=== PATIENT | male | born 1970 | race American Indian/Alaskan Native ===

== ENCOUNTER 2019-04-17 16:06 | Emergency (ER) | payer MEDICAID ==
--- NOTE | 2019-04-17 16:12 | Event Note ---
ED Screening Note Date of service: 04/17/19 Time: 16:12 ED Screening Note: 49 y/o male comes in for abscess to the back of his head for 2 days. This initial assessment/diagnostic orders/clinical plan/treatment(s) is/are subject to change based on patients health status, clinical progression and re- assessment by fellow clinical providers in the ED. Further treatment and workup at subsequent clinical providers discretion. Patient/guardian urged not to elope from the ED as their condition may be serious if not clinically assessed and managed. Initial orders include:
--- NOTE | 2019-04-17 17:40 | Emergency Department Report ---
- General Chief complaint: Skin/Abscess/Foreign Body Stated complaint: BUMP ON HEAD/PAIN Time Seen by Provider: 04/17/19 17:10 Source: patient Mode of arrival: Ambulatory Limitations: No Limitations - History of Present Illness Initial comments: Patient is a 49-year-old male who presents the emergency room with complaints of an abscess to the posterior scalp that began a week ago. He states he has had pus drainage. Denies ever having before. He states last week he shaved his head with a razor and had an ingrown hair present and he pulled the hair. He denies any fever. He has a past medical history of diabetes and hypertension. Do not take his high blood pressure medication today - Related Data Previous Rx's Medication Instructions Recorded Last Taken Type Sulfamethoxazole/Trimethoprim 1 each PO BID 10 Days #20 tablet 04/17/19 Unknown Rx [Bactrim DS TAB] Allergies Allergy/AdvReac Type Severity Reaction Status Date / Time No Known Allergies Allergy Verified 04/17/19 16:11 Abscess Boil HPI - HPI Chief Complaint: Skin/Abscess/Foreign Body Stated Complaint: BUMP ON HEAD/PAIN Time Seen by Provider: 04/17/19 17:10 Home Medications: Previous Rx's Medication Instructions Recorded Last Taken Type Sulfamethoxazole/Trimethoprim 1 each PO BID 10 Days #20 tablet 04/17/19 Unknown Rx [Bactrim DS TAB] Allergies/Adverse Reactions: Allergies Allergy/AdvReac Type Severity Reaction Status Date / Time No Known Allergies Allergy Verified 04/17/19 16:11 ED Review of Systems ROS: Stated complaint: BUMP ON HEAD/PAIN Other details as noted in HPI Comment: All other systems reviewed and negative ED Past Medical Hx - Social History Smoking Status: Never Smoker Substance Use Type: None - Medications Home Medications: Home Medications Medication Instructions Recorded Confirmed Last Taken Type Sulfamethoxazole/Trimethoprim 1 each PO BID 10 Days #20 tablet 04/17/19 Unknown Rx [Bactrim DS TAB] ED Physical Exam - General Limitations: No Limitations General appearance: alert, in no apparent distress - Head Head exam: Present: normocephalic, other (2 cm area of induration and fluctuance to the posterior scalp with purulent drainage present) - Eye Eye exam: Present: normal appearance, PERRL - ENT ENT exam: Present: mucous membranes moist - Respiratory Respiratory exam: Present: normal lung sounds bilaterally. Absent: respiratory distress, wheezes, rales, rhonchi, stridor, chest wall tenderness, accessory muscle use, decreased breath sounds, prolonged expiratory - Cardiovascular Cardiovascular Exam: Present: regular rate, normal rhythm, normal heart sounds. Absent: systolic murmur, diastolic murmur, rubs, gallop - Neurological Exam Neurological exam: Present: alert, oriented X3 - Psychiatric Psychiatric exam: Present: normal affect, normal mood - Skin Skin exam: Present: warm ED Course Vital Signs 04/17/19 04/17/19 04/17/19 16:11 17:44 18:55 Temperature 97.9 F 98.4 F Pulse Rate 116 H 121 H 115 H Respiratory 16 16 18 Rate Blood Pressure 163/94 Blood Pressure 142/101 140/104 [Left] O2 Sat by Pulse 99 99 Oximetry - I & D Posterior Occipital Type of Procedure: Simple Site: posterior scalp Blade Size: 11 I & D Procedure: betadine prep, sterile drapes applied, sterile dressing applied Progress: area irrigated with saline, betadine prep used, sterile drapes applied, 2 cc of 1% lidocaine without epi used for anesthetic, 0.5 cm incision made with 11 blade, purulent drainage expressed, irrigated with 20 cc of saline, pt tolerated well, no complications, bleeding controlled ED Medical Decision Making - Medical Decision Making Patient is a 49-year-old male who presents the emergency room with complaints of an abscess to the posterior scalp that began a week ago. He states he has had pus drainage. Denies ever having before. He states last week he shaved his head with a razor and had an ingrown hair present and he pulled the hair. He denies any fever. He has a past medical history of diabetes and hypertension. Do not take his high blood pressure medication today. on exam: 2 cm area of induration and fluctuance to the posterior scalp with purulent drainage present. I&D performed per procedure note. pt placed on bactrim to to history of DM. advised to please keep area clean and dry. may wash with soap and water and immediately dry. take medication as prescribed to completion. follow up with a primary care doctor in the next 2-3 days. please take your blood pressure medication that you are prescribed. discuss with your primary care doctor the elevation in your blood pressure during todays visit. return to the emergency room for any new or worsening symptoms. Critical care attestation.: If time is entered above; I have spent that time in minutes in the direct care of this critically ill patient, excluding procedure time. ED Disposition Clinical Impression: Abscess, Elevated blood pressure reading Disposition: TO HOME OR SELFCARE Is pt being admited?: No Does the pt Need Aspirin: No Condition: Stable Instructions: Abscess Incision and Drainage (ED), Abscess (ED) Additional Instructions: keep area clean and dry. may wash with soap and water and immediately dry. take medication as prescribed to completion. follow up with a primary care doctor in the next 2-3 days. please take your blood pressure medication that you are prescribed. discuss with your primary care doctor the elevation in your blood pressure during todays visit. return to the emergency room for any new or worsening symptoms. Prescriptions: Sulfamethoxazole/Trimethoprim [Bactrim DS TAB] 1 each PO BID 10 Days #20 tablet Referrals: BARBARA CHEN MD [Primary Care Provider] - 2-3 Days Time of Disposition: 18:42 Print Language: MALTESE
[2019-04-17 18:56] VITALS: BP 140/104
== END 2019-04-17 18:59 | disposition home or self-care (01) ==
LOC: ED 16:06
DX: L02.811 Cutaneous abscess of head [any part, except face] (principal); I10 Essential (primary) hypertension; E11.9 Type 2 diabetes mellitus without complications; Z79.899 Other long term (current) drug therapy

== ENCOUNTER 2021-04-23 15:42 | Emergency (ER) | payer MEDICAID | END 2021-04-23 18:54 | disposition left against medical advice (07) | LOC: ED 15:42 | DX: Z00.00 Encounter for general adult medical examination without abnormal findings (principal); Z53.21 Procedure and treatment not carried out due to patient leaving prior to being seen by health care provider ==